=== PATIENT | male | born 1955 | race Caucasian/White ===

== ENCOUNTER → 2016-10-27 | Day surgery (SDC) | payer MEDICARE ==
[~2016-10-27] MED LIST: HYDR25CA PO; HYDROmorphone 2 MG/ML VIAL IV PRN; IV RINGERS,LACTATED 1000ML 1,000 ML IV SCH; LIDOCAINE 1% 1 ML SYRINGE. ID PRN; LIDOCAINE 2% PF Vial for OR 5 ML VIAL. ONE; METO100T2 PO; MORPHINE SULFATE 2 MG/ML DISP.SYRIN. IV PRN; ONDANSETRON PF 4 MG/2 ML VIAL. IV PRN; PANT40TA5 PO; PROCHLORPERAZINE 10 MG/2 ML VIAL. IV PRN; PROPOFOL 20 ML IV ONE; SERT50TA PO; fentaNYL PF VIAL 100 MCG/2 ML VIAL IV PRN
[2016-10-27 13:40] VITALS: BP 165/89
== END | disposition home or self-care (01) ==
LOC: ENDOS 12:05
PROVIDERS: ATTEND Internal Medicine Gastroenterology
DX: K29.70 Gastritis, unspecified, without bleeding (principal); K22.2 Esophageal obstruction; F41.9 Anxiety disorder, unspecified; F32.9 Major depressive disorder, single episode, unspecified; M19.90 Unspecified osteoarthritis, unspecified site; I10 Essential (primary) hypertension; Z72.89 Other problems related to lifestyle; Z87.891 Personal history of nicotine dependence; Z86.69 Personal history of other diseases of the nervous system and sense organs; Z72.0 Tobacco use
CPT/HCPCS: 43239; 43450; 88305; J2704; J2001